=== PATIENT | male | born 1955 | race American Indian/Alaskan Native ===

== ENCOUNTER 2020-09-21 19:01 | Emergency (ER) | payer MEDICARE ==
[2020-09-21 19:17] VITALS: BP 163/108
--- NOTE | 2020-09-21 19:36 | Event Note ---
ED Screening Note ED Screening Note: pts states that he got confused at home she states his blood pressure increased to the 200s systolic and she gave him atenolol she states that he had multiple teeth pulled and was sedated she states at home he got confused, was talking abnormally and was wanting to walk around instead of sit down, she states she believes he was lightheaded he denies symptoms currently This initial assessment/diagnostic orders/clinical plan/treatment(s) is/are subject to change based on patients health status, clinical progression and re- assessment by fellow clinical providers in the ED. Further treatment and workup at subsequent clinical providers discretion. Patient/guardian urged not to elope from the ED as their condition may be serious if not clinically assessed and managed. Initial orders include: labs, EKG, CT head
[2020-09-21 20:05] LABS: Basophils % (Auto) 0.3 % (0.0-1.8); Eosinophils % (Auto) 0.2 % (0.0-4.3); Hematocrit 42.8 % (35.5-45.6); Hemoglobin 14.1 gm/dl (11.8-15.2); Lymphocytes # (Auto) 0.8 K/mm3 (1.2-5.4); Mean Corpuscular HGB Conc 33 % (32-34); Mean Corpuscular Volume 83 fl (84-94); Monocytes # (Auto) 0.7 K/mm3 (0.0-0.8); Monocytes % (Auto) 6.5 % (0.0-7.3); Platelet Count 160 K/mm3 (140-440); Red Blood Count 5.17 M/mm3 (3.65-5.03); Red Cell Distribution Width 15.2 % (13.2-15.2)
--- NOTE | 2020-09-21 20:21 | Cat Scan Report ---
CT head/brain wo con INDICATION / CLINICAL INFORMATION: 65 years Male; lightheaded, confusion. TECHNIQUE: Routine CT head without contrast. All CT scans at this location are performed using CT dos e reduction for ALARA by means of automated exposure control. COMPARISON: None. 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 It would be difficult to evaluate for sunita-infarct areas of ischemia with out diffusion imaging by MRI. Otherwise, no acute hemorrhage, mass effect, midline shift, hydrocephalus, or acute, large territori al infarct. No signs of significant atrophy or chronic infarct. No significant white matter abnormali ty seen. CRANIOCERVICAL JUNCTION: No significant abnormality. ORBITS: No significant abnormality of visualized orbits. SINUSES / MASTOIDS: Mucosal thickening seen in the ethmoids. ADDITIONAL FINDINGS: None. IMPRESSION: 1. No focal mass, hemorrhage, hydrocephalus, or acute, large territorial infarct. Signer Name: Serjio Smith MD, III Signed: 09/21/2020 8:16 PM Workstation Name: [email or web address]
[2020-09-21 20:30] LABS: Alanine Aminotransferase 53 units/L (7-56); Albumin 4.6 g/dL (3.9-5); BUN/Creatinine Ratio 13; Blood Urea Nitrogen 17 mg/dL (9-20); Calcium 9.7 mg/dL (8.4-10.2); Hemolysis Index 27
--- NOTE | 2020-09-25 10:18 | Electrocardiograph Report ---
[facility] Test Date: 2020-09-21 Test Time: 19:44:33 Pat Name: TRISTON OCHOA Department: Room: Gender: M Administrative Assistant Office Manager: PASHA : 1955 Requested By: MAAME VIERA Order Number: [id number] Reading MD: Kristy Rehman Measurements Intervals [place] Rate: 67 P: 46 OR: 151 QRS: 21 QRSD: 85 T: -58 QT: 355 QTc: 376 Interpretive Statements Sinus rhythm No previous ECG available for comparison Electronically Signed On 09-25-2020 10:18:10 EDT by Kristy Rehman
== END 2020-09-21 20:13 ==
LOC: ED 19:01
DX: R55 Syncope and collapse (principal); Z53.21 Procedure and treatment not carried out due to patient leaving prior to being seen by health care provider
CPT/HCPCS: 36415; 70450; 80053; 82550; 83735; 84484; 85025; 93005

== ENCOUNTER 2021-09-19 12:15 | Emergency (ER) | payer MEDICARE ==
[2021-09-19 14:07] LABS: Basophils % (Auto) 0.4 % (0.0-1.8); Eosinophils # (Auto) 0.3 K/mm3 (0.0-0.4); Eosinophils % (Auto) 4.6 % (0.0-4.3); Hematocrit 43.7 % (35.5-45.6); Lymphocytes % (Auto) 34.8 % (13.4-35.0); Mean Corpuscular HGB Conc 32 % (32-34); Mean Corpuscular Volume 83 fl (84-94); Monocytes # (Auto) 0.5 K/mm3 (0.0-0.8); Monocytes % (Auto) 8.6 % (0.0-7.3); Platelet Count 183 K/mm3 (140-440); Red Blood Count 5.24 M/mm3 (3.65-5.03); Red Cell Distribution Width 14.9 % (13.2-15.2)
[2021-09-19 14:19] LABS: Alanine Aminotransferase 40 units/L (7-56); Albumin 4.6 g/dL (3.9-5); BUN/Creatinine Ratio 19; Blood Urea Nitrogen 26 mg/dL (9-20); Calcium 10.1 mg/dL (8.4-10.2); Hemolysis Index 10
[2021-09-19 14:26] LABS: Bilirubin,Urine NEG (Negative); Blood,Urine NEG (Negative); Color,Urine Yellow (Yellow); Mucus,Urine FEW /HPF; Urobilinogen,Urine < 2.0 mg/dL (<2.0)
--- NOTE | 2021-09-19 15:14 | Emergency Department Report ---
ED General Adult HPI - General Chief complaint: Medical Clearance Stated complaint: POTASSIUM Time Seen by Provider: 09/19/21 15:02 Source: patient Mode of arrival: Ambulatory Limitations: No Limitations - History of Present Illness Initial comments: 66-year-old black male with a past medical history of hypertension, diabetes, and hyperlipidemia presents to the emergency department for lab draw. He states that on Monday he had an annual exam by his primary care provider, and on Monday evening they called him and told him that he had an elevated potassium over 6 and that he should go to the emergency department. Patient did not have any complaints then and currently he denies chest pain, shortness of breath, nausea, vomiting, dizziness, and diaphoresis. MD Complaint: Sent by PCP for elevated potassium Severity scale (0 -10): 2 Associated Symptoms: denies: chest pain, cough, diaphoresis, fever/chills, headaches, loss of appetite, malaise, nausea/vomiting, seizure, shortness of breath, syncope, weakness - Related Data Allergies Allergy/AdvReac Type Severity Reaction Status Date / Time No Known Allergies Allergy Unverified 09/19/21 13:16 ED Review of Systems ROS: Stated complaint: POTASSIUM Other details as noted in HPI Comment: All other systems reviewed and negative Constitutional: denies: chills, diaphoresis, fever, weakness Eyes: denies: eye pain ENT: denies: ear pain Respiratory: denies: cough, orthopnea, shortness of breath, SOB with exertion, SOB at rest Cardiovascular: denies: chest pain, palpitations, dyspnea on exertion, orthopnea, edema, syncope, paroxysmal nocturnal dyspnea Endocrine: no symptoms reported Gastrointestinal: denies: abdominal pain, nausea, vomiting, diarrhea, hematemesis, melena, hematochezia Genitourinary: denies: urgency, dysuria Musculoskeletal: denies: back pain Skin: denies: rash Neurological: denies: headache, weakness, numbness, abnormal gait Psychiatric: denies: anxiety, depression Hematological/Lymphatic: denies: easy bleeding, easy bruising ED Past Medical Hx - Past Medical History Previous Medical History?: Yes Hx Hypertension: Yes Hx CVA: Yes Hx Diabetes: Yes - Surgical History Past Surgical History?: Yes Additional Surgical History: colonoscopy - Social History Smoking Status: Former Smoker Substance Use Type: None ED Physical Exam - General Limitations: No Limitations General appearance: alert - Head Head exam: Present: atraumatic - Eye Eye exam: Present: normal appearance. Absent: conjunctival injection - Neck Neck exam: Present: normal inspection, full ROM. Absent: tenderness - Respiratory Respiratory exam: Present: normal lung sounds bilaterally. Absent: respiratory distress, wheezes, rales, rhonchi, stridor, chest wall tenderness, accessory muscle use - Cardiovascular Cardiovascular Exam: Present: bradycardia, normal heart sounds - GI/Abdominal GI/Abdominal exam: Present: soft, normal bowel sounds. Absent: distended, tenderness, guarding, rebound, rigid - Extremities Exam Extremities exam: Present: normal inspection, normal capillary refill. Absent: tenderness, pedal edema - Back Exam Back exam: Present: normal inspection. Absent: tenderness, CVA tenderness (R), CVA tenderness (L), paraspinal tenderness, vertebral tenderness - Neurological Exam Neurological exam: Present: alert, oriented X3, CN II-XII intact, normal gait - Psychiatric Psychiatric exam: Present: normal affect, normal mood - Skin Skin exam: Present: warm, dry, intact, normal color ED Course Vital Signs 09/19/21 13:16 Temperature 98.1 F Pulse Rate 58 L Respiratory 20 Rate Blood Pressure 144/87 [Right] O2 Sat by Pulse 96 Oximetry ED Medical Decision Making - Lab Data Result diagrams: 09/19/21 13:46 09/19/21 13:46 - EKG Data Interpretation: no acute changes, normal EKG 09/19/21 15:15 No acute ischemic changes noted - Medical Decision Making 66-year-old black male with a past medical history of hypertension, diabetes, and hyperlipidemia presents to the emergency department for lab draw. He states that on Monday he had an annual exam by his primary care provider, and on Monday evening they called him and told him that he had an elevated potassium over 6 and that he should go to the emergency department. Patient did not have any complaints then and currently he denies chest pain, shortness of breath, nausea, vomiting, dizziness, and diaphoresis. No gross abnormalities noted on labs, urine or exam. Patient noted to have a potassium of 4.9 currently continues to deny any symptoms including chest pain, shortness of breath, nausea, vomiting, diaphoresis, dizziness, abdominal pain, back pain, and fever. He will be discharged home to follow-up with his primary care physician whom he has a follow-up appointment with tomorrow. He is advised to return to the emergency department for any concerning symptoms. He verbalized understanding of and agreement with plan of care. Critical care attestation.: If time is entered above; I have spent that time in minutes in the direct care of this critically ill patient, excluding procedure time. ED Disposition Clinical Impression: Routine lab draw Disposition: 01 HOME / SELF CARE / HOMELESS Is pt being admited?: No Does the pt Need Aspirin: No Condition: Stable Instructions: Health Maintenance After Age 65 Additional Instructions: Your potassium level today was 4.9. Follow-up with your primary care provider tomorrow as planned, and advised them of the current potassium level. Return to the emergency department for any concerning symptoms. Referrals: DAVE CROUCH MD [Primary Care Provider] - 3-5 Days Time of Disposition: 15:17
[2021-09-19 15:36] VITALS: BP 155/91
--- NOTE | 2021-09-21 09:02 | Electrocardiograph Report ---
[facility] Test Date: 2021-09-19 Test Time: 13:49:41 Pat Name: TRISTON OCHOA Department: Room: Gender: M Cabin Crew: YUDELKA : 1955 Requested By: ANDREW HUTCHINSON Order Number: [id number] Reading MD: Murali Hernandez Measurements Intervals [place] Rate: 54 P: 55 AR: 154 QRS: 60 QRSD: 92 T: 43 QT: 381 QTc: 361 Interpretive Statements Sinus rhythm nonspecific st-t Compared to ECG 09/21/2020 19:44:33 No significant changes Electronically Signed On 09-21-2021 9:02:25 EDT by Murali Hernandez
== END 2021-09-19 15:37 | disposition home or self-care (01) ==
LOC: ED 12:15
DX: R79.9 Abnormal finding of blood chemistry, unspecified (principal); I10 Essential (primary) hypertension; E11.8 Type 2 diabetes mellitus with unspecified complications; Z87.891 Personal history of nicotine dependence
CPT/HCPCS: 36415; 80053; 81001; 83735; 85025; 93005; 99283